=== PATIENT | female | born 1980 | race Caucasian/White ===

== ENCOUNTER 2024-05-26 15:40 | Emergency (ER) | payer MEDICAID, SELFPAY ==
[2024-05-26 15:42] VITALS: BP 147/61; PULSE 81; RESP 18; TEMP 37.1; O2SAT 100; BMI 21.8
--- NOTE | 2024-05-26 15:58 | HMH.EDGENADL ---
Discharge Plan Disposition Patient Disposition: Home, Self-Care Condition: Fair Prescriptions Prescriptions: New ketorolac 10 mg tablet 10 mg PO Q8H 5 Days Qty: 15 0RF ondansetron HCl 4 mg tablet 4 mg PO DAILY Qty: 30 0RF Referrals Follow up/Referrals: Haleigh Barton PA [Primary Care Provider] - See instructions Activity Restrictions/Add. Instructions Additional Instructions/Restrictions: Ice face several times a day. May take Tylenol in addition to the Toradol but do not take ibuprofen with the Toradol. Clinical Impressions Clinical Impression: Dental abscess, Toothache Instructions Patient Instructions: Tooth Abscess, DI for Dental Pain Print Language Print Language: Maltese Discharge ED Provider: Leobardo Vasquez General Adult HPI <Cassidy Han (ED), [employer] - Last Filed: 05/26/24 17:05> General Chief complaint: Dental/Oral Stated complaint: AO 05-25 tooth pulled , swollen and pain Time Seen by Provider: 05/26/24 15:43 History of Present Illness HPI narrative: This is a 43-year-old female who presents to the ED today with left-sided mouth pain and neck pain. She states that she had 1 tooth pulled yesterday and then started having left sided neck pain and left sided mouth pain where the tooth was pulled. She states that the swelling has not improved from yesterday. She started having a fever of 101 to and 100 last night and called the dentist and she was concerned over the swelling and pain. The dentist told her to be seen in the emergency room. Patient is on Augmentin at this time. She has nausea but no vomiting or diarrhea no chills. No other associated signs or symptoms. Related Data Previous Rx's ?Medication ?Instructions ?Recorded ketorolac 10 mg tablet 10 mg PO Q8H pain 5 days #15 tabs 05/26/24 ondansetron HCl 4 mg tablet 4 mg PO DAILY #30 tabs 05/26/24 Allergies Allergy/AdvReac Type Severity Reaction Status Date / Time No Known Allergies Allergy Verified 03/29/24 12:33 PFSH <Cassidy Han (ED), [employer] - Last Filed: 05/26/24 17:05> [facility] Disclaimer: The information contained in this section may have been updated after the patient was seen, as this information can be updated by other users. Social History (Updated 05/26/24 @ 17:00 by Cassidy Han (ED), [employer]) Smoking Status: Never smoker alcohol intake: former current occupational status: other Travel in the last 8 weeks: None <Cassidy Han (ED), [employer] - Last Filed: 05/26/24 17:05> ROS Obtained: Yes Systems reviewed as appropriate & no additional complaints except as documented Constitutional Constitutional: Reports as per HPI Physical Exam <Cassidy Han (ED), [employer] - Last Filed: 05/26/24 17:05> General General appearance: alert and in distress (With left neck pain and mouth pain) Head Head exam: atraumatic and other (Swelling to left side of mouth) Eye Eye exam: Present normal appearance, PERRL and EOMI ENT ENT exam: Present mucous membranes moist and other (Swelling to bottom of left gum line, no obvious bleeding, no drainage) Neck Neck exam: Present trachea midline and tenderness (To left neck) Respiratory Respiratory exam: Present normal lung sounds bilaterally Cardiovascular Cardiovascular exam: Present regular rate, normal rhythm, normal heart sounds, +S1 and +S2 Extremities Exam Extremities exam: Present full ROM and normal capillary refill Neurological Exam Neurological exam: Present alert, oriented X3 and normal gait Skin Skin exam: Present warm, dry and intact Lymphatic Lymphatic Findings: other (Left cervical nodes tender, enlarged) Medical Decision Making <Cassidy Han (ED), [employer] - Last Filed: 05/26/24 17:05> Medical Records Screening: Per USPSTF and CDC recommendations, given the prevalence of disease in our region, it is our hospital?s policy to screen for HIV and viral Hepatitis for all patients aged 18 and over and those with ongoing risk factors. Cristhian Inquiry Pt receiving controlled substance: No Cristhian was queried for this patient: No Vital Signs: 05/26/24 15:42 05/26/24 15:59 05/26/24 17:16 Temperature 98.7 F 98.2 F Temperature Source Oral Oral Pulse Rate 76 76 Pulse Rate [Right Brachial] 81 Respiratory Rate 18 16 Blood Pressure 115/66 115/66 Blood Pressure [Right Arm] 147/61 H Blood Pressure Mean [Right Arm] 89 Blood Pressure Source Automatic Cuff Blood Pressure Source [Right Arm] Automatic Cuff Blood Pressure Position Sitting Blood Pressure Position [Right Arm] Supine 02 Sat by Pulse Oximetry 100 100 Oxygen Delivery Method Room Air Room Air Lab Data Lab Results 05/26/24 16:05: WBC 6.6, RBC 4.02 L, Hgb 12.4, Hct 36.2 L, MCV 90.2, MCH 30.8, MCHC 34.1, RDW 13.6, Plt Count 252, MPV 8.9, Neut % (Auto) 74.2, Lymph % (Auto) 17.6, Barnes % (Auto) 4.4, Eos % (Auto) 2.7, Baso % (Auto) 1.1, Neut # (Auto) 4.9, Lymph # (Auto) 1.2, Barnes # (Auto) 0.3, Eos # (Auto) 0.2, Baso # (Auto) 0.1, Sodium 137, Potassium 3.6, Chloride 105, Carbon Dioxide 25, Anion Gap 10.6, BUN 12, Creatinine 0.70, Estimated Creat Clear 112, Estimated GFR 92, Est GFR ( Amer) 112, Glucose 102 H, Calcium 9.3, Total Bilirubin 0.7, AST 19, ALT 7 L, Alkaline Phosphatase 43, Total Protein 7.1, Albumin 4.2, Globulin 2.9, Albumin/Globulin Ratio 1.4 05/26/24 16:05 05/26/24 16:05 Orders (Tests/Meds): ED MEDICATIONS Discontinued Medications Generic Name Dose Route Start Last Admin Trade Name Freq PRN Reason Stop Dose Admin Ketorolac Tromethamine 30 mg 05/26/24 15:51 05/26/24 16:11 Ketorolac 30mg/Ml Vial IV 05/26/24 15:52 Not Given ONCE ONE Ketorolac Tromethamine 30 mg 05/26/24 15:56 05/26/24 16:09 Ketorolac 30mg/Ml Vial IM 05/26/24 15:57 Not Given ONCE ONE Ketorolac Tromethamine 30 mg 05/26/24 16:08 05/26/24 16:10 Ketorolac 30mg/Ml Vial IV 05/26/24 16:09 30 mg ONCE ONE Administration Ondansetron HCl 4 mg 05/26/24 15:51 05/26/24 16:11 Ondansetron 4mg/2ml Vial IV 05/26/24 15:52 Not Given ONCE ONE Ondansetron HCl 4 mg 05/26/24 15:56 05/26/24 16:09 Ondansetron 4mg Odt SL 05/26/24 15:57 Not Given ONCE ONE Ondansetron HCl 4 mg 05/26/24 16:08 05/26/24 16:10 Ondansetron 4mg/2ml Vial IV 05/26/24 16:09 4 mg ONCE ONE Administration ORDERS Category Date Time Status POCUS Point of Care (ER Only) Stat Exams 05/26/24 15:51 Completed CBC w/Auto Diff [Complete Blood Count Auto Diff] Stat Lab 05/26/24 16:05 Completed Comprehensive Metabolic Panel Stat Lab 05/26/24 16:05 Completed HIV (1&2) Antibody Rapid Stat Lab 05/26/24 16:05 Received Hep C Ab with Reflex to RNA Stat Lab 05/26/24 16:05 Received Medical Decision Narrative: Insert review patient is a 43-year-old female presenting to the emergency department for evaluation of swelling of left face and neck from pulling tooth. Patient is hemodynamically stable and nontoxic-appearing upon arrival, afebrile. Differential diagnosis includes cellulitis, dental infection among others. Workup will be conducted with CBC CMP, bedside ultrasound. Initial inventions include IV Toradol and Zofran. Initial workup reviewed by me CBC CMP. Bedside ultrasound by Dr. Vasquez showed small amount of cellulitis but otherwise normal. We thought about doing a CT but since the ultrasound was normal we elected not to do the CT. Encourage patient to continue taking Augmentin and ice the area is much as possible. Continue to take ibuprofen [id number]. <Leobardo Vasquez MD - Last Filed: 05/26/24 17:37> Vital Signs: 05/26/24 15:42 05/26/24 15:59 05/26/24 17:16 Temperature 98.7 F 98.2 F Temperature Source Oral Oral Pulse Rate 76 76 Pulse Rate [Right Brachial] 81 Respiratory Rate 18 16 Blood Pressure 115/66 115/66 Blood Pressure [Right Arm] 147/61 H Blood Pressure Mean [Right Arm] 89 Blood Pressure Source Automatic Cuff Blood Pressure Source [Right Arm] Automatic Cuff Blood Pressure Position Sitting Blood Pressure Position [Right Arm] Supine 02 Sat by Pulse Oximetry 100 100 Oxygen Delivery Method Room Air Room Air Lab Data Lab Results 05/26/24 16:05: WBC 6.6, RBC 4.02 L, Hgb 12.4, Hct 36.2 L, MCV 90.2, MCH 30.8, MCHC 34.1, RDW 13.6, Plt Count 252, MPV 8.9, Neut % (Auto) 74.2, Lymph % (Auto) 17.6, Barnes % (Auto) 4.4, Eos % (Auto) 2.7, Baso % (Auto) 1.1, Neut # (Auto) 4.9, Lymph # (Auto) 1.2, Barnes # (Auto) 0.3, Eos # (Auto) 0.2, Baso # (Auto) 0.1, Sodium 137, Potassium 3.6, Chloride 105, Carbon Dioxide 25, Anion Gap 10.6, BUN 12, Creatinine 0.70, Estimated Creat Clear 112, Estimated GFR 92, Est GFR ( Amer) 112, Glucose 102 H, Calcium 9.3, Total Bilirubin 0.7, AST 19, ALT 7 L, Alkaline Phosphatase 43, Total Protein 7.1, Albumin 4.2, Globulin 2.9, Albumin/Globulin Ratio 1.4 Orders (Tests/Meds): ED MEDICATIONS Discontinued Medications Generic Name Dose Route Start Last Admin Trade Name Freq PRN Reason Stop Dose Admin Ketorolac Tromethamine 30 mg 05/26/24 15:51 05/26/24 16:11 Ketorolac 30mg/Ml Vial IV 05/26/24 15:52 Not Given ONCE ONE Ketorolac Tromethamine 30 mg 05/26/24 15:56 05/26/24 16:09 Ketorolac 30mg/Ml Vial IM 05/26/24 15:57 Not Given ONCE ONE Ketorolac Tromethamine 30 mg 05/26/24 16:08 05/26/24 16:10 Ketorolac 30mg/Ml Vial IV 05/26/24 16:09 30 mg ONCE ONE Administration Ondansetron HCl 4 mg 05/26/24 15:51 05/26/24 16:11 Ondansetron 4mg/2ml Vial IV 05/26/24 15:52 Not Given ONCE ONE Ondansetron HCl 4 mg 05/26/24 15:56 05/26/24 16:09 Ondansetron 4mg Odt SL 05/26/24 15:57 Not Given ONCE ONE Ondansetron HCl 4 mg 05/26/24 16:08 05/26/24 16:10 Ondansetron 4mg/2ml Vial IV 05/26/24 16:09 4 mg ONCE ONE Administration ORDERS Category Date Time Status POCUS Point of Care (ER Only) Stat Exams 05/26/24 15:51 Completed CBC w/Auto Diff [Complete Blood Count Auto Diff] Stat Lab 05/26/24 16:05 Completed Comprehensive Metabolic Panel Stat Lab 05/26/24 16:05 Completed HIV (1&2) Antibody Rapid Stat Lab 05/26/24 16:05 Received Hep C Ab with Reflex to RNA Stat Lab 05/26/24 16:05 Received Medical Decision Narrative: Patient is a 43-year-old female presenting to the emergency department for evaluation of swelling of left face and neck from pulling tooth. Patient is hemodynamically stable and nontoxic-appearing upon arrival, afebrile. Differential diagnosis includes cellulitis, dental infection among others. Workup will be conducted with CBC CMP, bedside ultrasound. Initial inventions include IV Toradol and Zofran. Initial workup reviewed by me CBC CMP. Bedside ultrasound by Dr. Vasquez showed small amount of cellulitis but otherwise normal. We thought about doing a CT but since the ultrasound was normal we elected not to do the CT. Encourage patient to continue taking Augmentin and ice the area is much as possible. Continue to take ibuprofen [id number]. I was consulted by the BARBIE, and we discussed the complexity of the problems being addressed. I approved the treatment and management plan for this patient's care in the Emergency Department, thus performing a substantive portion of the medical decision making. I also independently interviewed and examined patient. Patient states that her face has been swollen since yesterday, 05/25. Swelling has not gotten any worse. Denies fevers, chills, voice changes, difficulty swallowing or breathing. States that she does have mild to moderate pain with opening mouth wide, but she is able to open mouth nonetheless. No tongue swelling, elevation of the tongue, tenderness or swelling under her chin, external changes of her neck. No range of motion of neck difficulties. On my physical exam, no evidence of tonsillitis, exudate, pharyngeal erythema, uvular deviation, palatal swelling, external neck swelling, submental induration, dental abscess, angioedema, or other abnormal gregorio pharyngeal findings. No lymphadenopathy or crepitus. Patient does have mild trismus able to open her mouth approximately 1 to 1-1/2 cm. [id number] ultrasound was performed at bedside, this was negative for any acute abscess, cellulitis, or other abnormality. Appears to be inflammatory. No free air or gas underneath the skin. Because patient at baseline without signs or symptoms of clinical decompensation, deemed appropriate for discharge. Results were relayed to patient who voiced understanding and were agreeable to outpatient management and follow up. I discussed my clinical impression with patient and answered all questions. At this time, the evidence for any other entities in the differential is insufficient to warrant any further testing or ED observation. This was explained as well. Advisory was given that persistent or worsening symptoms require further evaluation. I confirmed the understanding of this discussion. Leobardo Vasquez MD Procedures <Leobardo Vasquez MD - Last Filed: 05/26/24 17:37> Limited Ultrasound Indication:: Limited soft tissue ultrasound Indication: Soft tissue swelling on left side of face Identified structures: Location: Left side of face, mandible, submental soft tissues Findings: Mild amount of inflammatory fluid. No obvious cellulitis, abscess, or other soft tissue abnormality. Impression: Inflammatory fluid. Otherwise normal tissue ultrasound of the face and submental region Images were saved to permanent archive The study was technically adequate Soft Tissue CPT Codes: CPT Neck: 57861-59 CPT Upper extremity: 51063-61 CPT Axilla: 80301-23 CPT Chest wall: 24794-05 CPT Breast: 89216-21-WU/LT (complete), 53974-53-HO/LT (limited), CPT Upper Back: 07618-06 CPT Lower Back: 88239-19 CPT Abdominal Wall: 21038-79 CPT Pelvic Wall: 61403-46 CPT Lower Extremity: 67177-52 CPT Other Soft Tissue: 46848-01 This study was performed by me, and I personally interpreted all images/videos. Based on my clinical judgement, these images were adequate and did not necessitate further imaging. Critical Care <Cassidy Han (ED), [employer] - Last Filed: 05/26/24 17:05> Critical Care Time Critical Care Time: No
[2024-05-26 15:59] VITALS: BP 115/66; PULSE 76; O2SAT 100
[2024-05-26] MEDS: KETOROLAC 30MG/ML VIAL 30 MG IV (16:10)
[2024-05-26] MEDS: ONDANSETRON 4MG/2ML VIAL 4 MG IV (16:10)
[2024-05-26 16:14] LABS: Basophils # 0.1 K/mm3 (0-0.2); Basophils % 1.1 % (0.1-2.0); Eosinophils # 0.2 K/mm3 (0.0-0.4); Eosinophils % 2.7 % (0.1-12.0); Hematocrit 36.2 % (37.0-47.0); Hemoglobin 12.4 g/dL (12.2-16.2); Lymphocytes # 1.2 K/mm3 (0.7-4.5); Lymphocytes % 17.6 % (10-50); Mean Corpuscular HGB Conc 34.1 g/dL (31.8-35.4); Mean Corpuscular Hemoglobin 30.8 pg (27.0-31.2); Mean Corpuscular Volume 90.2 fl (81-99); Mean Platelet Volume 8.9 fl (7.4-10.4); Monocytes # 0.3 K/mm3 (0.1-1.0); Monocytes % 4.4 % (1.7-9.3); Neutrophils # 4.9 K/mm3 (1.8-7.8); Neutrophils % 74.2 % (37.0-80.0); Platelet Count 252 K/mm3 (142-424); Red Blood Count 4.02 M/mm3 (4.20-5.40); Red Cell Distribution Width 13.6 % (11.5-17.5); White Blood Count 6.6 K/mm3 (4.8-10.8)
[2024-05-26 16:17] LABS: Albumin Level 4.2 g/dl (3.5-5.0); Chloride 105 mmol/L (98-107); Potassium 3.6 mmoL/L (3.5-5.1); Sodium 137 mmol/L (136-145)
[2024-05-26 16:20] LABS: Alanine Aminotransferase 7 U/L (12-78); Albumin/Globulin Ratio 1.4 (1.1-1.8); Alkaline Phosphatase 43 U/L (38-126); Anion Gap 10.6 mEq/L (5-15); Aspartate Amino Transferase 19 U/L (14-36); Bilirubin,Total 0.7 mg/dl (0.2-1.3); Blood Urea Nitrogen 12 mg/dl (7-17); Carbon Dioxide 25 mmol/L (22.0-30.0); Creatinine Clearance Estimated 112 mL/min (50-200); Estimated Glomerular Filt Rate 92 ml/min (>60); GFR (African American) 112 ML/MIN (>60); Globulin 2.9 g/dL (1.3-3.2); Total Protein,Serum 7.1 g/dl (6.3-8.2)
[2024-05-26 16:21] LABS: Calcium 9.3 mg/dl (8.4-10.2); Glucose 102 mg/dl (74-100)
[2024-05-26 17:16] VITALS: BP 115/66; PULSE 76; RESP 16; TEMP 36.8; O2SAT 100
[2024-05-26 20:09] LABS: HIV (1&2) Antibody Rapid NONREACTIVE (NONREACTIVE)
[2024-05-29 05:09] LABS: HCV Ab Non Reactive (Non Reactive)
== END 2024-05-26 17:17 | disposition home or self-care (01) ==
PROVIDERS: Nurse Practitioner; Emergency Provider Emergency Medicine; PCP Physician Assistant Medical
DX: K04.7 Periapical abscess without sinus (principal); K08.89 Other specified disorders of teeth and supporting structures; R50.9 Fever, unspecified; R22.1 Localized swelling, mass and lump, neck; M54.2 Cervicalgia
CPT/HCPCS: 80053; 85025; 86803; 87389; 96374; 96375; 99283; J1885; J2405